=== PATIENT | male | born 1985 | race Caucasian/White ===

== ENCOUNTER 2016-10-17 10:38 | Emergency (ER) | payer OTHER ==
[~2016-10-17] VITALS: Ht 185.4 cm; Wt 99.8 kg
[~2016-10-17 10:38] MED LIST: DEXT7.5T5 PO
[2016-10-17 10:46] VITALS: BP 145/89
[2016-10-17] MEDS ORDERED: hydrOXYzine PAMOATE 25 MG CAPSULE PO ONE (11:30)
== END 2016-10-17 11:11 | disposition home or self-care (01) ==
LOC: ER 10:42
DX: L03.211 Cellulitis of face (principal); L30.9 Dermatitis, unspecified; F10.20 Alcohol dependence, uncomplicated
CPT/HCPCS: 99283; A4606; Q0177; Z7610

== ENCOUNTER 2017-03-14 21:16 | Emergency (ER) | payer OTHER ==
[~2017-03-14] VITALS: Ht 185.4 cm; Wt 106.6 kg
--- NOTE | 2017-03-14 21:30 | NUR ---
31 YO MALE BB SELF. PT IS ALERT X 3, C/O LEFT ANKLE PAIN. PT ASSISTED TO ER BED, SKIN WARM AND DRY. AWAITING ORDERS FROM PROVIDER, WILL CONTINUE TO MONITOR
[2017-03-14] MEDS ORDERED: oxyCODONE/APAP (5/325 MG) 1 UDTAB TABLET ONE (21:46)
--- NOTE | 2017-03-14 21:54 | NUR ---
XRAY IN PROGRESS AT THE BEDSIDE.
[2017-03-14] MEDS ORDERED: oxyCODONE/APAP (5/325 MG) 1 UDTAB TABLET PO ONE (22:00)
[2017-03-14 22:52] VITALS: BP 128/75
--- NOTE | 2017-03-14 22:54 | NUR ---
Patient discharged to home in stable condition. Written and verbal after care instructions given. Patient verbalizes understanding of instruction. PT ambulatory with a steady gait VITAL SIGNS WITHIN NORMAL LIMITS.
== END 2017-03-14 22:56 | disposition home or self-care (01) ==
LOC: ER 21:21
DX: M25.572 Pain in left ankle and joints of left foot (principal)
CPT/HCPCS: 73610-TC; A4606; Z7610

== ENCOUNTER 2019-05-05 13:43 | Emergency (ER) | payer OTHER ==
[~2019-05-05] VITALS: Ht 182.9 cm; Wt 92.1 kg
[2019-05-05 13:55] VITALS: BP 127/70
== END 2019-05-05 15:05 | disposition home or self-care (01) ==
LOC: ER 13:45
DX: S69.82XA Other specified injuries of left wrist, hand and finger(s), initial encounter (principal); W22.8XXA Striking against or struck by other objects, initial encounter; Y93.89 Activity, other specified; Y92.89 Other specified places as the place of occurrence of the external cause; Y99.8 Other external cause status
CPT/HCPCS: 73130-TC

== ENCOUNTER 2022-04-17 14:23 | Emergency (ER) | payer OTHER ==
[~2022-04-17] VITALS: Ht 188 cm; Wt 100.7 kg
[2022-04-17 14:48] VITALS: BP 148/87
[2022-04-17] MEDS ORDERED: oxyCODONE/APAP (5/325 MG) 1 UDTAB TABLET ONE (16:10)
[2022-04-17] MEDS: oxyCODONE/APAP (5/325 MG) 1 UDTAB TABLET PO ONE (16:19)
--- NOTE | 2022-04-17 17:29 | NUR ---
Patient discharged to home in stable condition. Written and verbal after care instructions given. Patient verbalizes understanding of instruction.
== END 2022-04-17 17:29 | disposition home or self-care (01) ==
LOC: ER 14:31
DX: G89.18 Other acute postprocedural pain (principal); M79.602 Pain in left arm; Z79.899 Other long term (current) drug therapy
CPT/HCPCS: 73060-TC; 93971-TC